=== PATIENT | female | born 1945 | race Caucasian/White ===

== ENCOUNTER 2020-05-14 10:11 | Outpatient (CLI) | payer MEDICARE ==
--- NOTE | 2020-05-14 11:14 | MRI ---
MRI lumbar spine noncontrast: HISTORY: Sciatica, left leg pain. Symptoms radiate down the buttock and thigh. Anterolisthesis. COMPARISON: None FINDINGS: Appropriate T1 marrow signal intensity of the lumbar vertebra. Lumbar spine vertebral body height is maintained. No fracture. No significant STIR hyperintensity to suggest vertebral body edema or ligamentous injury. Appropriate signal intensity of the visualized solid organs and paraspinal muscles. Conus medullaris terminates at the inferior aspect of L1. There is a fatty filum terminale. T12-L1:Adequate disc hydration. There is a central/right subarticular disc herniation with inferior d isc migration. Mild central canal stenosis. Patent bilateral neural foramina. L1-L2:Disc desiccation without significant loss of disc space height. Broad-based disc bulge minimall y flattens the ventral thecal sac. No significant central canal stenosis. Patent bilateral neural foramina. L2-L3:Adequate disc hydration. No significant loss of disc space height. No posterior disc abnormalit y. No significant central canal stenosis. Right neural foramen is patent. Mild left neural foraminal narrowing. L3-L4:Disc desiccation without significant loss of disc space height. Broad-based disc bulge, ligamen jony flavum thickening and facet hypertrophy result in mild central canal stenosis. Mild bilateral neural foraminal narrowing predominantly due to disc material. This is trace amount of fluid in bilat eral facet joints. L4-L5:Disc desiccation without significant loss of disc space height. Broad-based disc bulge, ligamen jony flavum thickening and severe facet hypertrophy result in moderate to severe central canal stenosis. Narrowing of bilateral subarticular zones, right greater than left. Partial obscuration of the traversing right L5 nerve root. Minimal deformity of the traversing left L5 nerve root. Mild bilateral neural foraminal narrowing. There is a trace amount of fluid in bilateral facet joints. L5-S1:Adequate disc hydration. No significant posterior disc abnormality. No significant central sandra l stenosis. Patent bilateral neural foramina. IMPRESSION: 1. Grade 1 anterolisthesis of L4 upon L5. 2. Multilevel degenerative changes of the lumbar spine as detailed above. 3. Inferior disc migration at T12-L1 without significant central canal stenosis. 4. Partial obscuration of the traversing right L5 nerve root. 5. Significant bilateral facet hypertrophy at L3-L4 and L4-L5. There is fluid in bilateral facet join ts. Transcribed Date/Time: 05/14/2020 12:03 PM
== END 2020-05-14 10:12 | disposition home or self-care (01) ==
LOC: TBSIIMAG 10:11
PROVIDERS: ATTEND Orthopaedic Surgery
DX: M43.16 Spondylolisthesis, lumbar region (principal); M47.816 Spondylosis without myelopathy or radiculopathy, lumbar region
CPT/HCPCS: 72148